=== PATIENT | male | born 1975 | race Caucasian/White ===

== ENCOUNTER 2018-05-07 09:19 | Emergency (ER) | payer OTHER ==
[~2018-05-07] VITALS: Wt 78.0 kg
[~2018-05-07 09:19] MED LIST: CLIN300C10 PO
[2018-05-07] MEDS ORDERED: AZIT500T3 PO (11:28)
[2018-05-07] MEDS ORDERED: OSEL75CA23 PO (11:28)
[2018-05-07 11:38] VITALS: BP 128/82; PULSE 82; RESP 18
--- NOTE | 2018-05-07 12:30 | ERD ---
ER Documentation Chief Complaint Chief Complaint FLU SYMPTOMS X 1 WEEK HPI This is a 42-year-old male who presents for evaluation of cough, epistaxis, generalized body aches, and flulike illness for the last week. Patient is otherwise healthy, aside from smoking history, currently living in a halfway. He denies weight loss, no night sweats. ROS All systems reviewed and are negative except as per history of present illness. Medications Home Meds Active Scripts Oseltamivir Phosphate* (Tamiflu*) 75 Mg Capsule, 75 MG PO BID for 5 Days, CAP Prov:GIULIANO GARRISNO MD 05/07/18 Azithromycin* (Zithromax*) 500 Mg Tablet, 500 MG PO DAILY for 5 Days, TAB Prov:GIULIANO GARRISON MD 05/07/18 Clindamycin Hcl* (Clindamycin Hcl*) 300 Mg Capsule, 300 MG PO TID for 10 Days, CAP Prov:ALF FULTON PA-C 09/05/15 PMhx/Soc Medical and Surgical Hx: pt denies Medical Hx, pt denies Surgical Hx History of Surgery: Yes (INGUINAL HERNIA REPAIR ) Hx Miscellaneous Medical Probl: Yes (HYPERTHYROID ) Hx Alcohol Use: No Hx Substance Use: No Hx Tobacco Use: No Smoking Status: Never smoker Physical Exam Vitals Vital Signs Date Temp Pulse Resp B/P (MAP) Pulse Ox O2 O2 Flow FiO2 Time Delivery Rate 05/07/18 98.1 82 18 128/82 99 Room Air 11:38 (97) 05/07/18 98.1 83 18 131/69 99 09:25 (89) Physical Exam Const: Afebrile, nontoxic, well-appearing Head: Atraumatic Eyes: Normal Conjunctiva ENT: Normal External Ears, Nose and Mouth. Neck: Full range of motion. No meningismus. Resp: Clear to auscultation bilaterally, no wheezes rales or rhonchi Cardio: Regular rate and rhythm, no murmurs Abd: Soft, non tender, non distended. Normal bowel sounds Skin: No petechiae or rashes Back: No midline or flank tenderness Ext: No cyanosis, or edema Neur: Awake and alert Psych: Normal Mood and Affect Procedures/MDM This is a 42-year-old male who presents for evaluation cough, congestion and flulike illness. Exam reveals well-appearing nontoxic male no acute distress. Given his symptoms, as well as tobacco history, I think it is reasonable to treat empirically for community-acquired pneumonia, as well as influenza, patient was agreeable this plan of care, discharge he was in no acute distress. Departure Diagnosis: Primary Impression: Influenza-like symptoms Additional Impression: Influenza Condition: Stable Patient Instructions: Influenza (Adult) Additional Instructions: Call your primary care doctor TOMORROW for an appointment during the next 1 WEEK.Tell the alumnae secretary that you were referred from this facility.See the doctor sooner or return here if your condition worsens before your appointment time. GIULIANO GARRISON MD May 07, 2018 12:30
== END 2018-05-07 11:50 | disposition home or self-care (01) ==
LOC: FTE 09:19
DX: J11.1 Influenza due to unidentified influenza virus with other respiratory manifestations (principal)
CPT/HCPCS: 99283